=== PATIENT | male | born 1955 | race Caucasian/White ===

== ENCOUNTER 2022-08-07 14:39 | Day surgery (SDC) | payer OTHER ==
[~2022-08-07] VITALS: Ht 170.2 cm; Wt 51.8 kg
[2022-08-07 14:55] VITALS: BP 135/73
[2022-08-07] MEDS ORDERED: MIDAZolam 1 MG/ML 5ML VIAL ONE (15:09)
[2022-08-07] MEDS ORDERED: fentaNYL/PF 50MCG/1 ML 2ML syringe ONE (15:09)
[2022-08-07] MEDS ORDERED: LIDOcaine Viscous 15ml cup ONE (15:10)
[2022-08-07 15:28] VITALS: BP 156/76
[2022-08-07] MEDS ORDERED: TRAZ300T2 PO (15:34)
[2022-08-07] MEDS ORDERED: QUET300T2 PO (15:35)
[2022-08-07] MEDS ORDERED: LAMO150T2 PO (15:36)
[2022-08-07 15:38] VITALS: BP 137/72
[2022-08-07] MEDS ORDERED: TIOT18CA3 IH (15:39)
[2022-08-07] MEDS ORDERED: TIOT4MIS3 INH (15:40)
[2022-08-07 15:48] VITALS: BP 148/87
[2022-08-07 15:58] VITALS: BP 157/79
== END 2022-08-07 16:20 | disposition home or self-care (01) ==
LOC: GI LAB 14:39
PROVIDERS: ATTEND Internal Medicine Gastroenterology
DX: K94.23 Gastrostomy malfunction (principal); K20.80 Other esophagitis without bleeding; J44.9 Chronic obstructive pulmonary disease, unspecified; F17.210 Nicotine dependence, cigarettes, uncomplicated; Z72.89 Other problems related to lifestyle; Z85.810 Personal history of malignant neoplasm of tongue; Z92.21 Personal history of antineoplastic chemotherapy; Y83.8 Other surgical procedures as the cause of abnormal reaction of the patient, or of later complication, without mention of misadventure at the time of the procedure
CPT/HCPCS: 43239; 43246; B4087; J2250; J3010; J7030; Z7512; 43762; 99152; A4620; A5120